=== PATIENT | male | born 1995 | race Caucasian/White ===

== ENCOUNTER 2017-01-23 13:29 | Emergency (ER) | payer SELFPAY ==
[~2017-01-23] VITALS: Ht 180.3 cm; Wt 103.4 kg
[~2017-01-23 13:29] MED LIST: DICY20TA57 PO; SRTR100T PO
--- OUTSIDE RECORDS SUMMARY | 2017-01-23 13:53 | XMS REPORT ---
Author Author NAYELI HORTON Organization [employer] Address Unknown Phone Unavailable Care Team Providers Care Die Designer Name Role Phone NAYELI HORTON CP Unavailable Allergies, Adverse Reactions, Alerts Substance Reaction Event Type N.K.D.A. Info Not Available Non Drug Allergy Problems Problem Type Condition Code Onset Dates Condition Status Assessment Anxiety F41.9 Active Assessment Acute non-recurrent maxillary sinusitis J01.00 Active Problem Anxiety F41.9 Active Assessment Chest discomfort R07.89 Active Medications Medication Code System Code Instructions Start Date End Date Status Dosage Sertraline HCl [facility] [address]-22 100 MG Orally Once a day Mar 11, 2016 1/2 tablet daily 3 weeks then 1 tablet daily Azithromycin [facility] [address]-25 250 MG Orally Once a day Mar 11, 2016 Mar 16, 2016 2 tablets on the first day, then 1 tablet daily for 4 days Procedures Procedure Coding System Code Date Office Visit, Est Pt., Level 4 CPT-4 50529 Mar 11, 2016 ELECTROCARDIOGRAM, TRACING CPT-4 31465 Mar 11, 2016 Vital Signs Date/Time: Mar 11, 2016 Cardiac Monitoring Heart Rate 72 bpm Weight 245.5 lbs Height 70 in BMI 35.22 Index Blood Pressure Diastolic 90 mmHg Blood Pressure Systolic 140 mmHg Results Name Result Date Reference Range Unit Abnormality Flag EKG, TRACING (IN-HOUSE) Summary Purpose [employer] Submission
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
[2017-01-23 15:34] VITALS: BP 125/88
== END 2017-01-23 15:34 | disposition home or self-care (01) ==
LOC: EDUNIT# 13:29 → ER 13:34
DX: S06.0X0A Concussion without loss of consciousness, initial encounter (principal); S01.511A Laceration without foreign body of lip, initial encounter; S00.83XA Contusion of other part of head, initial encounter; F41.9 Anxiety disorder, unspecified; F32.9 Major depressive disorder, single episode, unspecified; Y04.8XXA Assault by other bodily force, initial encounter
CPT/HCPCS: 99282

== ENCOUNTER 2020-04-14 11:21 | Inpatient (IN) | payer SELFPAY ==
[~2020-04-14] VITALS: Ht 177 cm; Wt 116.5 kg
[2020-04-14] MEDS ORDERED: IBUPROFEN 800 MG (MOTRIN) TAB PO ONE (11:45)
[2020-04-14] MEDS ORDERED: ONDANSETRON 4 MG/2 ML (SDV) Z0FRAN ONE (12:04)
--- NOTE | 2020-04-14 12:04 | ED General ---
General Stated Complaint: COVID POSITIVE - COUGH / SOA / FEVER Source of Information: Patient Exam Limitations: No Limitations History of Present Illness Date Seen by Provider: Apr 14, 2020 Time Seen by Provider: 12:04 Initial Comments To ER with shortness of breath. He states that he is Covid positive and tested positive on Thursday, April 06. He became symptomatic on April 03. He checked his oxygen saturation at home today and found it to be around 86% and he was 89% upon arrival here. This increased nicely to 99% on 2 L of supplemental oxygen. He also complains of some nausea and general malaise. Fevers persist. Timing/Duration: Getting Worse Severity: Moderate Associated Systoms: Cough, Shortness of Air Allergies and Home Medications Allergies Coded Allergies: No Known Drug Allergies (Unverified , 02/08/13) Home Medications Dicyclomine Hcl 20 Mg Tablet, 1 EACH PO QID PRN Prescribed by: KARL CONWAY on 02/08/13 0110 Sertraline Hcl 100 Mg Tablet, 1.5 TAB PO DAILY, (Reported) Patient Home Medication List Home Medication List Reviewed: Yes Review of Systems Review of Systems Constitutional: see HPI, chills, fever, malaise, weakness EENTM: see HPI Respiratory: see HPI, cough, dyspnea on exertion, short of breath Cardiovascular: no symptoms reported Genitourinary: no symptoms reported Musculoskeletal: no symptoms reported Skin: no symptoms reported Psychiatric/Neurological: No Symptoms Reported Hematologic/Lymphatic: No Symptoms Reported Immunological/Allergic: no symptoms reported Past Etfxxaz-Gvrbii-Pcqxnn Hx Patient Social History 2nd Hand Smoke Exposure: No Recent Hopitalizations: No Seasonal Allergies Seasonal Allergies: No Past Medical History Surgeries: No Respiratory: Yes ("CRAPPY AIRWAY" ) Cardiac: No Neurological: No Reproductive Disorders: No Sexually Transmitted Disease: No HIV/AIDS: No Genitourinary: No Gastrointestinal: No Musculoskeletal: No Endocrine: No HEENT: No Cancer: No Psychosocial: Yes Anxiety, Depression Integumentary: No Blood Disorders: No Family Medical History No Pertinent Family Hx Physical Exam Vital Signs Vital Signs - First Documented 04/14/20 12:00 Temp 38.2 Pulse 112 Resp 30 B/P (MAP) 124/79 (94) Pulse Ox 89 O2 Delivery Room Air O2 Flow Rate 2.00 Capillary Refill : Height, Weight, BMI Height: 5'11" Weight: 228lbs. oz. 103.817973qg; 31.80 BMI Method:Stated General Appearance: No Apparent Distress, Obese, Other (Does appear ill but in no distress) Eyes: Bilateral Eye Normal Inspection, Bilateral Eye PERRL Neck: Full Range of Motion, Normal Inspection Respiratory: Normal Breath Sounds, No Accessory Muscle Use, No Respiratory Distress Cardiovascular: Normal Peripheral Pulses, Tachycardia (Narrow complex regular sinus rhythm rate of about 110) Gastrointestinal: Normal Bowel Sounds, Non Tender, Soft Extremity: Normal Capillary Refill, Normal Inspection Neurologic/Psychiatric: Alert, Oriented x3 Skin: Normal Color, Warm/Dry Progress/Results/Core Measures Suspected Sepsis SIRS Temperature: Pulse: Respiratory Rate: Laboratory Tests 04/14/20 12:10: White Blood Count 5.2 Blood Pressure / Mean: Laboratory Tests 04/14/20 12:10: Creatinine 0.88, Platelet Count 252, Total Bilirubin 0.6 Results/Orders Lab Results Laboratory Tests Test 04/14/20 12:10 Range/Units White Blood Count 5.2 4.3-11.0 10^3/uL Red Blood Count 4.92 4.30-5.52 10^6/uL Hemoglobin 14.1 13.3-17.7 g/dL Hematocrit 44 40-54 % Mean Corpuscular Volume 89 80-99 fL Mean Corpuscular Hemoglobin 29 25-34 pg Mean Corpuscular Hemoglobin Concent 32 32-36 g/dL Red Cell Distribution Width 13.4 10.0-14.5 % Platelet Count 252 130-400 10^3/uL Mean Platelet Volume 8.7 L 9.0-12.2 fL Immature Granulocyte % (Auto) 1 % Neutrophils (%) (Auto) 64 42-75 % Lymphocytes (%) (Auto) 29 12-44 % Monocytes (%) (Auto) 6 0-12 % Eosinophils (%) (Auto) 0 0-10 % Basophils (%) (Auto) 0 0-10 % Neutrophils # (Auto) 3.4 1.8-7.8 10^3/uL Lymphocytes # (Auto) 1.5 1.0-4.0 10^3/uL Monocytes # (Auto) 0.3 0.0-1.0 10^3/uL Eosinophils # (Auto) 0.0 0.0-0.3 10^3/uL Basophils # (Auto) 0.0 0.0-0.1 10^3/uL Immature Granulocyte # (Auto) 0.0 0.0-0.1 10^3/uL D-Dimer 0.60 H 0.00-0.49 UG/ML Sodium Level 139 135-145 MMOL/L Potassium Level 3.4 L 3.6-5.0 MMOL/L Chloride Level 100 98-107 MMOL/L Carbon Dioxide Level 24 21-32 MMOL/L Anion Gap 15 H 5-14 MMOL/L Blood Urea Nitrogen 8 7-18 MG/DL Creatinine 0.88 0.60-1.30 MG/DL Estimat Glomerular Filtration Rate > 60 BUN/Creatinine Ratio 9 Glucose Level 94 70-105 MG/DL Calcium Level 7.0 L 8.5-10.1 MG/DL Corrected Calcium 7.0 L 8.5-10.1 MG/DL Total Bilirubin 0.6 0.1-1.0 MG/DL Aspartate Amino Transf (AST/SGOT) 90 H 5-34 U/L Alanine Aminotransferase (ALT/SGPT) 185 H 0-55 U/L Alkaline Phosphatase 48 40-136 U/L C-Reactive Protein High Sensitivity 2.20 H 0.00-0.50 MG/DL Total Protein 7.3 6.4-8.2 GM/DL Albumin 4.0 3.2-4.5 GM/DL Procalcitonin 0.05 <0.10 NG/ML My Orders Orders - SARAH HOWELL CONTROLLED ATMOSPHERIC FURNACE BRAZER Cbc With Automated Diff (04/14/20 11:38) Comprehensive Metabolic Panel (04/14/20 11:38) Procalcitonin (Pct) (04/14/20 11:38) Hs C Reactive Protein (04/14/20 11:38) Fibrin Degradation Products (04/14/20 11:38) Chest 1 View, Ap/Pa Only (04/14/20 11:38) Ed Iv/Invasive Line Start (04/14/20 11:38) Ibuprofen Tablet (Motrin Tablet) (04/14/20 11:45) Ondansetron Injection (Zofran Injectio (04/14/20 12:15) Ondansetron Injection (Zofran Injectio (04/14/20 12:04) Ct Angio Chest W (04/14/20 12:51) Iohexol Injection (Omnipaque 350 Mg/Ml 1 (04/14/20 13:15) Received Contrast (Hold Metformin- Contr (04/14/20 13:15) Ns (Ivpb) (Sodium Chloride 0.9% Ivpb Bag (04/14/20 13:15) Medications Given in ED Current Medications Medications Dose Ordered Sig/Palomo Route Start Time Stop Time Status Last Admin Dose Admin Ibuprofen 800 mg ONCE ONCE PO 04/14/20 11:45 04/14/20 11:46 DC 04/14/20 12:15 800 MG Ondansetron HCl 8 mg ONCE ONCE IVP 04/14/20 12:15 04/14/20 12:16 DC 04/14/20 12:15 8 MG Vital Signs/I&O 04/14/20 12:00 Temp 38.2 Pulse 112 Resp 30 B/P (MAP) 124/79 (94) Pulse Ox 89 O2 Delivery Room Air O2 Flow Rate 2.00 Capillary Refill : Departure Communication (Admissions) I discussed with him the need for admission to the hospital given his hypoxia as well as use of convalescent plasma and remdesivir your both of which experimental in nature with risk of allergic reaction. Discussed with him he would need to sign a consent to receive these treatments and he agrees. Impression Primary Impression: COVID-19 Additional Impression: Hypoxia Disposition: ADMITTED INPATIENT Condition: Stable Admissions Decision to Admit Reason: Admit from ER (General) Decision to Admit/Date: Apr 14, 2020 Time/Decision to Admit Time: 12:18 Departure-Patient Inst. Referrals: NO,LOCAL PHYSICIAN (PCP/Family) Primary Care Physician SARAH HOWELL APRN Apr 14, 2020 12:04
[2020-04-14] MEDS ORDERED: ONDANSETRON 4 MG/2 ML (SDV) Z0FRAN IVP ONE (12:15)
[2020-04-14 12:20] LABS: BASOPHILS % (AUTO) 0 % (0-10); EOSINOPHILS % (AUTO) 0 % (0-10); HEMATOCRIT 44 % (40-54); HEMOGLOBIN 14.1 g/dL (13.3-17.7); LYMPHOCYTES # (AUTO) 1.5 10^3/uL (1.0-4.0); LYMPHOCYTES % (AUTO) 29 % (12-44); MEAN CORPUSCULAR HEMOGLOBIN 29 pg (25-34); MEAN CORPUSCULAR HGB CONC 32 g/dL (32-36); MEAN CORPUSCULAR VOLUME 89 fL (80-99); MEAN PLATELET VOLUME 8.7 fL (9.0-12.2); MONOCYTES # (AUTO) 0.3 10^3/uL (0.0-1.0); MONOCYTES % (AUTO) 6 % (0-12); NEUTROPHILS # (AUTO) 3.4 10^3/uL (1.8-7.8); NEUTROPHILS % (AUTO) 64 % (42-75); PLATELET COUNT 252 10^3/uL (130-400); WHITE BLOOD COUNT 5.2 10^3/uL (4.3-11.0)
[2020-04-14 12:30] LABS: CHLORIDE 100 MMOL/L (98-107); POTASSIUM 3.4 MMOL/L (3.6-5.0); SODIUM 139 MMOL/L (135-145)
[2020-04-14 12:32] LABS: GLUCOSE 94 MG/DL (70-105); TOTAL PROTEIN 7.3 GM/DL (6.4-8.2)
[2020-04-14 12:33] LABS: CARBON DIOXIDE 24 MMOL/L (21-32)
[2020-04-14 12:34] LABS: BILIRUBIN,TOTAL 0.6 MG/DL (0.1-1.0)
[2020-04-14 12:35] LABS: ALKALINE PHOSPHATASE 48 U/L (40-136)
[2020-04-14 12:36] LABS: CREATININE SERUM 0.88 MG/DL (0.60-1.30); GFR ESTIMATED > 60
[2020-04-14 12:37] LABS: BUN/CREATININE RATIO 9
[2020-04-14 12:39] LABS: ALANINE AMINOTRANSFERASE 185 U/L (0-55)
--- NOTE | 2020-04-14 13:13 | Diagnostic Imaging Report ---
Portable erect AP chest at 1243h. INDICATION: Shortness of breath positive for COVID. There are no prior studies available for comparison. This exam is less than optimal as this exam is taken in shallow inspiration. Allowing for this technical factor the heart size is within normal limits. There are vague patchy areas of increased density in the left perihilar region and left lung base and perhaps in the right lower lobe. These findings are suspicious for mild pneumonia/atelectasis and may be related to the patient's diagnosis of COVID 19. A follow-up chest exam would be recommended for further study. The mediastinum is not widened. The osseous structures are intact. IMPRESSION: The findings do suggest mild bilateral pneumonia/atelectasis with greater involvement on the left. Recommendations as above. Report was faxed to [facility] by mulu at 1:12pm. Dictated by: Dictated on workstation # [id number]
[2020-04-14] MEDS ORDERED: IOHEXOL 350 MG/ML 100 ML (OMNIPAQUE 350) VIAL IV ONE (13:15)
[2020-04-14] MEDS ORDERED: HOLD METFORMIN - RECEIVED CONTRAST 20 ML VIAL IV SCH (13:15)
[2020-04-14] MEDS ORDERED: NS 100 ML (IVPB) BAG IV ONE (13:15)
--- NOTE | 2020-04-14 13:35 | NUR ---
Patient asks if RN will call his mother Phuong and let her know he will be hospitalized. Phuong called and informed that patient will be admitted. She verbalized understanding that she will not be able to come visit.
--- NOTE | 2020-04-14 14:15 | Diagnostic Imaging Report ---
PROCEDURE: CT angiography of the chest with contrast. TECHNIQUE: Multiple contiguous axial images were obtained through the chest after uneventful bolus administration of intravenous contrast. 3D reconstructed CTA MIP acquisitions were also performed. Auto Exposure Controls were utilized during the CT exam to meet ALARA standards for radiation dose reduction. INDICATION: Shortness of breath, positive COVID There are no prior CTA chest examinations available for comparison. The plain film examination of the chest performed prior this study at 1242 did suggest involvement of both lungs by mild pneumonia/atelectasis, particularly left lung. There is no defect within the pulmonary arteries to indicate a pulmonary embolus. The aorta is not abnormally dilated and there is no sign of a dissection. The heart size is within normal limits. As suggested on the plain film exam there are diffuse patchy areas of pneumonia/atelectasis throughout both lungs. This is particularly true of the lung bases. There is no significant pleural effusion identified. There is no mediastinal or hilar adenopathy. There are a few borderline enlarged hilar nodes bilaterally. The thyroid gland was not visualized in its entirety. There is no obvious chest wall mass. The sections of the upper abdomen failed to show any sign of an acute abnormality . The liver is prominent and the low density appearance liver does suggest fatty metamorphosis. There is also splenomegaly. The appearance of the liver and spleen is similar to the prior CT abdomen exam of 12/01/2012. The bone windows are unremarkable for a fracture or for a destructive lesion. IMPRESSION: 1. There is no evidence for a pulmonary embolus or for a dissection. 2. There are diffuse alveolar/interstitial infiltrates throughout both lungs. Most likely these are secondary to pneumonia/atelectasis related to the patient's diagnosis of COVID 19. Report was faxed to [facility] by mulu at 2:13p.m. Dictated by: Dictated on workstation # [id number]
--- NOTE | 2020-04-14 14:36 | NUR ---
Patient awake and alert, resting in bed. He is on oxygen at 2 LPM via Nasal cannula. He denies any needs at this time. Pt informed he will be going to room 433 but they are cleaning the room currently.
--- NOTE | 2020-04-14 14:50 | NUR ---
Report called to Abigail [facility] on 4th floor.
[2020-04-14 16:10] VITALS: BP 109/63
[2020-04-14 16:28] VITALS: BP 109/63
[2020-04-14] MEDS ORDERED: ONDANSETRON 4 MG/2 ML (SDV) Z0FRAN IV PRN (16:30)
[2020-04-14 16:56] VITALS: BP 124/79
[2020-04-14] MEDS ORDERED: REMDESIVIR INJ 200 MG in NS (IVPB) 210 ML IV ONE ×2 (17:00→20:00)
[2020-04-14] MEDS ORDERED: ONDANSETRON 4 MG/2 ML (SDV) Z0FRAN IV SCH (18:00)
[2020-04-14] MEDS ORDERED: IBUPROFEN 800 MG (MOTRIN) TAB PO PRN (18:00)
[2020-04-14] MEDS: ENOXAPARIN 40 MG/0.4 ML (LOVENOX) SYR SC SCH (18:05)
--- NOTE | 2020-04-14 18:08 | History & Physical-Hospitalist ---
History of Present Illness HPI/Chief Complaint 24 yo male with dx Covid 1 week ago thursday. Sx's started 2 days before. Now with increased SOA, cough. Has been increasingly SOA with staying in bed more . C/O cough. Source: patient Exam Limitations: no limitations Date Seen 04/14/20 Time Seen by a Provider: 16:00 Attending Physician Samantha Pruitt MD PCP No,Local Physician Referring Physician Date of Admission Apr 14, 2020 at 12:50 Home Medications & Allergies Home Medications Reviewed patient Home Medication Reconciliation performed by pharmacy medication reconciliations laundry technician and/or nursing. Patients Allergies have been reviewed. Allergies Allergies Coded Allergies No Known Drug Allergies (Twdkempdmz40/1/13) Past Ldorldz-Pnufuv-Qvlvxj Hx Past Med/Social Hx: Reviewed Nursing Past Med/Soc Hx Patient Social History Marrital Status: single Employed/Student: unemployed Alcohol Use: Denies Use Recreational Drug Use: No Smoking Status: Never a Smoker 2nd Hand Smoke Exposure: No Recent Foreign Travel: No Contact w/other who traveled: No Recent Hopitalizations: No Recent Infectious Disease Expo: Yes (covid19) Immunizations Up To Date Pediatric: No Seasonal Allergies Seasonal Allergies: No Past Medical History Cardiac: High Cholesterol Reproductive: No Sexually Transmitted Disease: No HIV/AIDS: No Psychosocial: Anxiety, Depression History of Blood Disorders: No Family History No Pertinent Family Hx Review of Systems Constitutional: see HPI, fever, malaise, weakness EENTM: no symptoms reported Respiratory: cough Cardiovascular: no symptoms reported Gastrointestinal: no symptoms reported Genitourinary: no symptoms reported Musculoskeletal: no symptoms reported Skin: no symptoms reported Psychiatric/Neurological: Anxiety Physical Exam Physical Exam Vital Signs Vital Signs - First Documented 04/14/20 04/14/20 12:00 16:56 Temp 38.2 Pulse 112 Resp 30 B/P (MAP) 124/79 (94) Pulse Ox 89 O2 Delivery Room Air O2 Flow Rate 2.00 FiO2 28 Capillary Refill : Less Than 3 Seconds Height, Weight, BMI Height: 5'11" Weight: 228lbs. oz. 103.070138no; 37.21 BMI Method:Stated General Appearance: Obese, Other (appears ill) HEENT: Normal ENT Inspection Neck: Normal Inspection, Other (short thick) Respiratory: Crackles, Decreased Breath Sounds, Other (cough with inspiration) Cardiovascular: Regular Rate, Rhythm, No Gallop, No Murmur Gastrointestinal: Normal Bowel Sounds, Non Tender, Soft Extremity: No Pedal Edema Neurologic/Psychiatric: Depressed Affect Skin: Normal Color, Warm/Dry Results Results/Procedures Labs Laboratory Tests 04/14/20 12:10 Patient resulted labs reviewed. Imaging: Reviewed Imaging Report Assessment/Plan Admission Diagnosis Covid 19 viral pneumonia with hypoxia anxiet obesity Pt is at high risk for increasing respiratory failure because of sedentary lifestyle and body habitus. will begin decadron, Remdisivir and convelescent plasma with the informed consent of patient ( given to me) Prognosis guarded. Admission Status: Inpatient Order (span 2 midnights) Reason for Inpatient Admission: Poor prognosis with Covid 19 Clinical Quality Measures DVT/VTE Risk/Contraindication: Risk Factor Score Per Nursin RFS Level Per Nursing on Admit: 2=Moderate SAMANTHA PRUITT MD Apr 14, 2020 18:08
[2020-04-14 19:51] VITALS: BP 120/70
[2020-04-14] MEDS: RT-ALBUTEROL INHALER HFA (VENTOLIN HFA) 18 GM IH SCH (20:59)
[2020-04-14 23:47] VITALS: BP 103/64
[2020-04-15] MEDS: RT-ALBUTEROL INHALER HFA (VENTOLIN HFA) 18 GM IH SCH ×4 (02:23→19:00)
[2020-04-15 03:53] VITALS: BP 115/56
[2020-04-15 07:12] VITALS: BP 117/63
[2020-04-15 08:22] LABS: BASOPHILS % (AUTO) 0 % (0-10); EOSINOPHILS % (AUTO) 0 % (0-10); HEMATOCRIT 41 % (40-54); HEMOGLOBIN 13.1 g/dL (13.3-17.7); LYMPHOCYTES # (AUTO) 0.7 10^3/uL (1.0-4.0); LYMPHOCYTES % (AUTO) 28 % (12-44); MEAN CORPUSCULAR HEMOGLOBIN 29 pg (25-34); MEAN CORPUSCULAR HGB CONC 32 g/dL (32-36); MEAN CORPUSCULAR VOLUME 88 fL (80-99); MONOCYTES # (AUTO) 0.2 10^3/uL (0.0-1.0); MONOCYTES % (AUTO) 7 % (0-12); NEUTROPHILS # (AUTO) 1.6 10^3/uL (1.8-7.8); NEUTROPHILS % (AUTO) 65 % (42-75); PLATELET COUNT 303 10^3/uL (130-400); WHITE BLOOD COUNT 2.5 10^3/uL (4.3-11.0)
[2020-04-15 08:42] LABS: ALANINE AMINOTRANSFERASE 153 U/L (0-55); ALBUMIN 3.7 GM/DL (3.2-4.5); ALKALINE PHOSPHATASE 40 U/L (40-136); BILIRUBIN,TOTAL 0.5 MG/DL (0.1-1.0); BUN/CREATININE RATIO 12; CALCIUM 7.1 MG/DL (8.5-10.1); CARBON DIOXIDE 23 MMOL/L (21-32); CHLORIDE 104 MMOL/L (98-107); CREATININE SERUM 0.69 MG/DL (0.60-1.30); GFR ESTIMATED > 60; GLUCOSE 100 MG/DL (70-105); POTASSIUM 4.1 MMOL/L (3.6-5.0); SODIUM 141 MMOL/L (135-145); TOTAL PROTEIN 6.2 GM/DL (6.4-8.2)
[2020-04-15 11:02] VITALS: BP 142/94
--- NOTE | 2020-04-15 12:51 | Progress Note - Hospitalist ---
Subjective HPI/CC On Admission Date Seen by Provider: Apr 15, 2020 Time Seen by Provider: 11:00 24 yo male with dx Covid 1 week ago thursday. Sx's started 2 days before. Now with increased SOA, cough. Has been increasingly SOA with staying in bed more . C/O cough. Subjective/Events-last exam Patient is tearful this morning. He feels that he has wasted his life with his anxiety and being a hermit. Feels short of breath and has a lot of trouble with coughing and taking some deep breaths Review of Systems Pulmonary: Dyspnea, Cough Objective Exam Vital Signs Vital Signs Date Time Temp Pulse Resp B/P (MAP) Pulse Ox O2 Delivery O2 Flow Rate FiO2 04/15/20 11:02 36.3 100 18 142/94 (110) 93 Nasal Cannula 2.00 04/14/20 16:56 28 Capillary Refill : Less Than 3 SecondsLess Than 3 Seconds General Appearance: Anxious, Obese Neck: Supple Respiratory: Crackles, Decreased Breath Sounds Cardiovascular: Regular Rate, Rhythm, No Edema, No Gallop, No JVD, No Murmur, Normal Peripheral Pulses Gastrointestinal: Normal Bowel Sounds, Non Tender, Soft Extremity: Normal Capillary Refill, No Pedal Edema Results/Procedures Lab Laboratory Tests 04/15/20 07:52 Patient resulted labs reviewed. Imaging: Reviewed Imaging Report Assessment/Plan Assessment and Plan Assess & Plan/Chief Complaint COVID-19 viral pneumonia with acute respiratory failure currently stable on 2 L nasal cannula Connick anxiety and depression I believe he told me he was on Cymbalta we will need to address this for continuation Obesity Clinical Quality Measures DVT/VTE Risk/Contraindication: Risk Factor Score Per Nursin RFS Level Per Nursing on Admit: 2=Moderate GORDON PRUITT MD Apr 15, 2020 12:51
[2020-04-15] MEDS ORDERED: ALPRAZolam 0.25 MG (XANAX) TAB PO PRN (13:00)
[2020-04-15 15:42] VITALS: BP 113/66
[2020-04-15] MEDS ORDERED: REMDESIVIR INJ 100 MG in NS (IVPB) 230 ML IV SCH ×2 (17:00→20:00)
[2020-04-15] MEDS: ENOXAPARIN 40 MG/0.4 ML (LOVENOX) SYR SC SCH (18:28)
[2020-04-15] MEDS ORDERED: LOPERAMIDE 2 MG (IMODIUM) TABLET PO PRN ×2 (19:00→20:00)
[2020-04-15 19:41] VITALS: BP 119/60
[2020-04-15] MEDS ORDERED: LOPERAMIDE 2 MG (IMODIUM) TABLET ONE (20:06)
[2020-04-15 23:27] VITALS: BP 112/59
[2020-04-16] MEDS: RT-ALBUTEROL INHALER HFA (VENTOLIN HFA) 18 GM IH SCH ×3 (02:15→14:33)
[2020-04-16 04:28] VITALS: BP 112/57
[2020-04-16 07:43] LABS: ALBUMIN 3.6 GM/DL (3.2-4.5); CHLORIDE 106 MMOL/L (98-107); POTASSIUM 3.9 MMOL/L (3.6-5.0); SODIUM 142 MMOL/L (135-145)
[2020-04-16 07:46] LABS: GLUCOSE 113 MG/DL (70-105); TOTAL PROTEIN 6.1 GM/DL (6.4-8.2)
[2020-04-16 07:47] LABS: CARBON DIOXIDE 26 MMOL/L (21-32)
[2020-04-16 07:48] LABS: BILIRUBIN,TOTAL 0.4 MG/DL (0.1-1.0)
[2020-04-16 07:49] LABS: ALKALINE PHOSPHATASE 40 U/L (40-136); GFR ESTIMATED > 60
[2020-04-16 07:50] LABS: BUN/CREATININE RATIO 14
[2020-04-16 07:52] LABS: ALANINE AMINOTRANSFERASE 190 U/L (0-55)
[2020-04-16 08:18] VITALS: BP 120/56
[2020-04-16 11:02] VITALS: BP 135/60
[2020-04-16] MEDS ORDERED: DULO30CA3 PO (13:49)
--- NOTE | 2020-04-16 13:50 | NUR ---
I SPOKE WITH THE PATIENT ON THE ROOM PHONE AND CALLED [facility] TO COMPLETE THIS MED REC. PATIENT GETS VANITA FROM THE PALS PROGRAM AT [facility] LAST FILLED 02/07/20 CYMBALTA 30MG #270/90DS
--- NOTE | 2020-04-16 14:11 | Progress Note ---
Subjective Subjective/Events-last exam Afebrile, feeling significantly better, but hasn't been out of bed much yet today. Currently maintaining appropriate saturation on room air. Objective Exam Last Set of Vital Signs Vital Signs Date Time Temp Pulse Resp B/P (MAP) Pulse Ox O2 Delivery O2 Flow Rate FiO2 04/16/20 11:02 36.0 72 20 135/60 (85) 94 Room Air 04/16/20 09:51 1.00 04/14/20 16:56 28 Capillary Refill : Less Than 3 SecondsLess Than 3 Seconds I&O Intake and Output 04/16/20 00:00 Intake Total 2220 ml Balance 2220 ml Intake Oral 2220 ml # Voids 9 # Bowel Movements 5 General: Alert, No Acute Distress Lungs: Clear to Auscultation Heart: Regular Rate, No Murmurs Neuro: Normal Speech Psych/Mental Status: Mental Status NL Results/Procedures Lab Laboratory Tests 04/16/20 06:50: Sodium Level 142, Potassium Level 3.9, Chloride Level 106, Carbon Dioxide Level 26, Anion Gap 10, Blood Urea Nitrogen 10, Creatinine 0.70, Estimat Glomerular Filtration Rate > 60, BUN/Creatinine Ratio 14, Glucose Level 113H, Calcium Level 7.0L, Corrected Calcium 7.3L, Total Bilirubin 0.4, Aspartate Amino Transf (AST/SGOT) 107H, Alanine Aminotransferase (ALT/SGPT) 190H, Alkaline Phosphatase 40, Total Protein 6.1L, Albumin 3.6 Assessment/Plan Assessment/Plan (1) COVID-19 Status: Acute Assessment & Plan: Day 3 of dexamethasone and remdesevir. Still waiting for convalescent plasma. Is on room air today, will ambulate and if tolerated may d/c later today. (2) Hypoxia Status: Acute Assessment & Plan: Secondary to COVID 19 infection. (3) Elevated liver enzymes Status: Acute Assessment & Plan: Suspect secondary to COVID, not high enough to require holding remdesevir, monitor. (4) Depression Status: Chronic Assessment & Plan: Resume home Cymbalta (5) DVT prophylaxis Status: Acute Assessment & Plan: Enoxaparin Clinical Quality Measures DVT/VTE Risk/Contraindication: Risk Factor Score Per Nursin RFS Level Per Nursing on Admit: 2=Moderate SISSY BAILEY MD Apr 16, 2020 14:11
[2020-04-16 15:35] VITALS: BP 128/59
[2020-04-16] MEDS ORDERED: DEXA6TAB PO (15:52)
--- NOTE | 2020-04-16 15:57 | Discharge Summary ---
Discharge Summary Hospital Course Problems/Diagnosis: (1) COVID-19 Status: Acute Assessment & Plan: Received 3 days of dexamethasone and remdesevir, discharged with 2 additional days of PO dexamethasone. Convalescent plasma ordered but not available before he was ready for discharge. (2) Hypoxia Status: Acute Assessment & Plan: Secondary to COVID 19 infection, initially requiring supplemental oxygen. On day of d/c, weaned to room air, ambulated in room and showered without difficulty and SpO2 remained 95% on room air even with activity. (3) Elevated liver enzymes Status: Acute Assessment & Plan: Suspect secondary to COVID, not high enough to require holding remdesevir, monitor. (4) Depression Status: Chronic Assessment & Plan: Resume home Cymbalta Hospital Course Date of Admission: Apr 14, 2020 at 12:50 Admission Diagnosis : COVID19 pneumonia Hypoxia Depression Obesity Family Physician/Provider: Ladi,Local Physician Date of Discharge: 04/16/20 Discharge Diagnosis: See problem list Hospital Course: See problem list Labs and Pending Lab Test: Laboratory Tests 04/16/20 06:50: Sodium Level 142, Potassium Level 3.9, Chloride Level 106, Carbon Dioxide Level 26, Anion Gap 10, Blood Urea Nitrogen 10, Creatinine 0.70, Estimat Glomerular Filtration Rate > 60, BUN/Creatinine Ratio 14, Glucose Level 113H, Calcium Level 7.0L, Corrected Calcium 7.3L, Total Bilirubin 0.4, Aspartate Amino Transf (AST/SGOT) 107H, Alanine Aminotransferase (ALT/SGPT) 190H, Alkaline Phosphatase 40, Total Protein 6.1L, Albumin 3.6 Home Meds Active Dexamethasone 6 Mg Tablet 6 Mg PO DAILY Reported Cymbalta (Duloxetine HCl) 30 Mg Capsule.dr 90 Mg PO DAILY TAKES 3 (30MG) TABLETS Assessment/Pt DC Instructions Follow up with Bud Richter on 04/20 at 2:20 pm. You should remain in isolation until released by the health department. Discharge Diet: Regular Diet Activity as Tolerated: Yes Discharge Physical Examination Allergies: Coded Allergies: No Known Drug Allergies (Unverified , 02/08/13) General Appearance: No Apparent Distress Respiratory: Lungs Clear, Normal Breath Sounds Cardiovascular: Regular Rate, Rhythm, No Murmur Skin: Normal Color, Warm/Dry Neurologic/Psychiatric: Alert, No Motor/Sensory Deficits Copy Copies To 1: Bud Rober, [employer] Clinical Quality Measures DVT/VTE Risk/Contraindication: Risk Factor Score Per Nursin RFS Level Per Nursing on Admit: 2=Moderate SISSY BAILEY MD Apr 16, 2020 15:57
[2020-04-17] MEDS ORDERED: DULoxetine 30 MG (CYMBALTA) CAP PO SCH (09:00)
== END 2020-04-16 17:15 | disposition home or self-care (01) | DRG 177 ==
LOC: EDUNIT# 11:21 → ER 11:22 → 4TH 12:50
PROVIDERS: ADMIT Internal Medicine; ATTEND Family Medicine
PROC: XW033E5 Introduction of Remdesivir Anti-infective into Peripheral Vein, Percutaneous Approach, New Technology Group 5 (ICD-10-PCS; principal; 2020-04-14)
DX: U07.1 COVID-19 (principal); J96.01 Acute respiratory failure with hypoxia; J12.89 Other viral pneumonia; Z73.0 Burn-out; F41.9 Anxiety disorder, unspecified; F32.9 Major depressive disorder, single episode, unspecified; E66.9 Obesity, unspecified; Z68.37 Body mass index [BMI] 37.0-37.9, adult
CPT/HCPCS: 36415; 71045; 71275; 80053; 84145; 85025; 85379; 86141; 86900; 86901; 94640; 94760

== ENCOUNTER 2021-01-06 18:34 | Emergency (ER) | payer OTHER ==
[~2021-01-06] VITALS: Ht 177 cm; Wt 93.0 kg
[~2021-01-06 18:34] MED LIST changes: +DEXA6TAB PO; +DULO30CA3 PO; +ONDA4TAB11 PO; +RT-ALBUINH IH
--- NOTE | 2021-01-06 19:09 | ED GI ---
General Chief Complaint: Abdominal/GI Problems Stated Complaint: ABD PAIN Nursing Triage Note: ARRIVED VIA AMB TO ROOM 05. COMPLAINS OF MID UPPERGASTRIC ABD PAIN. PT HAS BEEN SEEN FOR THIS AND PRESCRIBED PROTONIX AND CARAFATE. PT STATES HE ALSO HAD A NEG ULTRASOUND. (VEL ROSALES) History of Present Illness Date Seen by Provider: Jan 06, 2021 Time Seen by Provider: 18:55 Initial Comments 25-year-old male presents for epigastric and right upper quadrant pain that has been present intermittently for the last month. He has been followed at [facility] and had a negative ultrasound, negative H. pylori and was started on Carafate and Protonix. He reports doing well until today. He had a burger and [place]oth[place] fries for lunch and since then had increased pain in his abdomen. He reports his pain at an 8/10 prior to arrival. But he currently reports it to be a 4/10 he does believe the symptoms are subsiding. He has had no nausea, diarrhea or vomiting. He reports drinking approximately half a gallon of water daily. He denies any added stress or anxiety in his life. Timing/Duration: 1-3 Hours Severity/Quality: Mild Location: RUQ, Epigastric Radiation: No Radiation Associated Symptoms: Heartburn; No Nausea/Vomiting (VEL ROSALES) Allergies and Home Medications Allergies Coded Allergies: No Known Drug Allergies (Unverified , 02/08/13) Home Medications Albuterol Sulfate 1 Puff Puff, 2 PUFF IH Q4H 1 PUFF = 90 MCG Prescribed by: ROXANNE GERMAIN on 04/11/201828 Dexamethasone 6 Mg Tablet, 6 MG PO DAILY Prescribed by: SISSY BAILEY on 04/16/20 155 Duloxetine HCl 30 Mg Capsule.dr, 90 MG PO DAILY, (Reported) TAKES 3 (30MG) TABLETS Ondansetron 4 Mg Tab.rapdis, 4 MG PO Q8H PRN for nausea Prescribed by: ROXANNE GERMAIN on 04/11/201828 Patient Home Medication List Home Medication List Reviewed: Yes (VEL ROSALES) Review of Systems Review of Systems Constitutional: no symptoms reported, chills Gastrointestinal: See HPI, Abdominal Pain; Denies Constipated, Denies Diarrhea, Denies Difficulty Swallowing, Denies Nausea, Denies Poor Appetite, Denies Poor Fluid Intake, Denies Vomiting (VEL ROSALES) All Other Systems Reviewed Negative Unless Noted: Yes (CONNIEVEL ESTRADA) Past Uksdhqc-Ghcbgn-Kjjcln Hx Patient Social History Substance use?: No Alcohol Use?: Yes Alcohol Frequency: Once in a while (CONNIEVEL ESTRADA) Immunizations Up To Date Tetanus Booster (TDap): Unknown PED Vaccines UTD: No Second COVID19 Vaccination Per: 07/29 PHIZER (VEL ROSALES) Seasonal Allergies Seasonal Allergies: No (VEL ROSALES) Past Medical History Surgeries: No Respiratory: Yes ("CRAPPY AIRWAY" ) Cardiac: Yes High Cholesterol Neurological: No Reproductive Disorders: No Sexually Transmitted Disease: No HIV/AIDS: No Genitourinary: No Gastrointestinal: No Musculoskeletal: No Endocrine: No HEENT: No Cancer: No Psychosocial: Yes Anxiety, Depression Integumentary: No Blood Disorders: No (VEL ROSALES) Family Medical History Reviewed Nursing Family Hx (VEL ROSALES) No Pertinent Family Hx (VEL ROSALES) Physical Exam Vital Signs Vital Signs - First Documented 01/06/21 18:46 Temp 36.3 Pulse 89 Resp 16 B/P (MAP) 129/80 (96) Pulse Ox 94 O2 Delivery Room Air (GORDON VU MD) Vital Signs Capillary Refill : Less Than 3 Seconds (CONNIEVEL ESTRADA) Height/Weight/BMI Height: 5'11" Weight: 228lbs. oz. 103.254058ad; 29.00 BMI Method:Stated General Appearance: WD/WN, no apparent distress Respiratory: chest non-tender, lungs clear, normal breath sounds, no respiratory distress Cardiovascular: normal peripheral pulses, regular rate, rhythm Gastrointestinal: normal bowel sounds, soft; No distended, No rebound; tenderness (Trace tenderness epigastric region and right upper quadrant. Negative rebound and negative Mclain sign.); No mass Back: normal inspection, no CVA tenderness Neurologic/Psychiatric: no motor/sensory deficits, alert, normal mood/affect, o riented x 3 (VEL ROSALES) Progress/Results/Core Measures Results/Orders Lab Results Laboratory Tests Test 01/06/21 19:22 Range/Units White Blood Count 10.7 4.3-11.0 10^3/uL Red Blood Count 5.06 4.30-5.52 10^6/uL Hemoglobin 14.6 13.3-17.7 g/dL Hematocrit 44 40-54 % Mean Corpuscular Volume 86 80-99 fL Mean Corpuscular Hemoglobin 29 25-34 pg Mean Corpuscular Hemoglobin Concent 33 32-36 g/dL Red Cell Distribution Width 13.5 10.0-14.5 % Platelet Count 306 130-400 10^3/uL Mean Platelet Volume 8.5 L 9.0-12.2 fL Immature Granulocyte % (Auto) 0 % Neutrophils (%) (Auto) 50 42-75 % Lymphocytes (%) (Auto) 21 12-44 % Monocytes (%) (Auto) 6 0-12 % Eosinophils (%) (Auto) 21 H 0-10 % Basophils (%) (Auto) 1 0-10 % Neutrophils # (Auto) 5.4 1.8-7.8 10^3/uL Lymphocytes # (Auto) 2.2 1.0-4.0 10^3/uL Monocytes # (Auto) 0.7 0.0-1.0 10^3/uL Eosinophils # (Auto) 2.3 H 0.0-0.3 10^3/uL Basophils # (Auto) 0.1 0.0-0.1 10^3/uL Immature Granulocyte # (Auto) 0.0 0.0-0.1 10^3/uL Neutrophils % (Manual) 58 % Lymphocytes % (Manual) 21 % Monocytes % (Manual) 6 % Eosinophils % (Manual) 15 % Blood Morphology Comment NORMAL Sodium Level 138 135-145 MMOL/L Potassium Level 3.8 3.6-5.0 MMOL/L Chloride Level 105 98-107 MMOL/L Carbon Dioxide Level 23 21-32 MMOL/L Anion Gap 10 5-14 MMOL/L Blood Urea Nitrogen 14 7-18 MG/DL Creatinine 0.80 0.60-1.30 MG/DL Estimat Glomerular Filtration Rate 116 BUN/Creatinine Ratio 18 Glucose Level 106 H 70-105 MG/DL Calcium Level 9.5 8.5-10.1 MG/DL Corrected Calcium 9.3 8.5-10.1 MG/DL Total Bilirubin 0.3 0.1-1.0 MG/DL Aspartate Amino Transf (AST/SGOT) 10 5-34 U/L Alanine Aminotransferase (ALT/SGPT) 17 0-55 U/L Alkaline Phosphatase 62 40-136 U/L Total Protein 7.0 6.4-8.2 GM/DL Albumin 4.2 3.2-4.5 GM/DL (GORDON VU MD) Medications Given in ED Current Medications Medications Dose Ordered Sig/Palomo Route Start Time Stop Time Status Last Admin Dose Admin Al Hydrox/Mg Hydrox/Simethicone 30 ml ONCE ONCE PO 01/06/21 19:15 01/06/21 19:16 DC 01/06/21 19:11 30 ML Hyoscyamine Sulfate 0.125 mg ONCE ONCE SL 01/06/21 20:30 01/06/21 20:31 DC 01/06/21 20:28 0.125 MG Lidocaine HCl 15 ml ONCE ONCE PO 01/06/21 19:15 01/06/21 19:16 DC 01/06/21 19:11 15 ML (GORDON VU MD) Vital Signs/I&O 01/06/21 01/06/21 18:46 20:47 Temp 36.3 36.3 Pulse 89 89 Resp 16 16 B/P (MAP) 129/80 (96) 120/78 (96) Pulse Ox 94 97 O2 Delivery Room Air Room Air (GORDON VU MD) Blood Pressure Mean: 96 Progress Progress Note : Time: 18:55 Progress Note Patient seen and evaluated, will obtain labs. Will give GI cocktail and reevaluate. 1944 patient had minimal improvement with the GI cocktail, will try Reglan and Levsin. 2029 patient reports improvement in his symptoms. Discharge instructions and return precautions reviewed with him. (VEL ROSALES) Departure Impression Primary Impression: Epigastric pain Disposition: HOME, SELF-CARE Condition: Improved Departure-Patient Inst. Decision time for Depature: 19:30 (VEL ROSALES) Referrals: [facility] [place],LOCAL PHYSICIAN (PCP) Primary Care Physician Patient Instructions: Dyspepsia (DC) Add. Discharge Instructions: Continue home medications as prescribed. Avoid spicy, fried or grilled foods. Use Mylanta or Maalox for acute abdominal pain. Follow-up with [facility] if symptoms are not improving or worsen. Return to the emergency department for new, urgent healthcare needs. All discharge instructions reviewed with patient and/or family. Voiced understanding. ATTENDING PHYSICIAN NOTE: I was physically present as attending physician in the emergency department during the care of this patient, but I was not directly involved in the decision making or delivery of care for this patient. (GORDON VU MD) CONNIEVEL Jan 06, 2021 19:09 GORDON VU MD Jan 07, 2021 04:24
[2021-01-06] MEDS ORDERED: LIDOCAINE 2% VISCOUS 15 ML UDC PO ONE (19:15)
[2021-01-06] MEDS ORDERED: ANTACID SUSP 30 ML UDC (MYLANTA) PO ONE (19:15)
[2021-01-06 19:30] LABS: BASOPHILS # (AUTO) 0.1 10^3/uL (0.0-0.1); BASOPHILS % (AUTO) 1 % (0-10); EOSINOPHILS # (AUTO) 2.3 10^3/uL (0.0-0.3); EOSINOPHILS % (AUTO) 21 % (0-10); HEMATOCRIT 44 % (40-54); HEMOGLOBIN 14.6 g/dL (13.3-17.7); LYMPHOCYTES # (AUTO) 2.2 10^3/uL (1.0-4.0); LYMPHOCYTES % (AUTO) 21 % (12-44); MEAN CORPUSCULAR HEMOGLOBIN 29 pg (25-34); MEAN CORPUSCULAR HGB CONC 33 g/dL (32-36); MEAN CORPUSCULAR VOLUME 86 fL (80-99); MEAN PLATELET VOLUME 8.5 fL (9.0-12.2); MONOCYTES # (AUTO) 0.7 10^3/uL (0.0-1.0); MONOCYTES % (AUTO) 6 % (0-12); NEUTROPHILS # (AUTO) 5.4 10^3/uL (1.8-7.8); NEUTROPHILS % (AUTO) 50 % (42-75); PLATELET COUNT 306 10^3/uL (130-400); WHITE BLOOD COUNT 10.7 10^3/uL (4.3-11.0)
[2021-01-06 19:45] LABS: ALBUMIN 4.2 GM/DL (3.2-4.5); BILIRUBIN,TOTAL 0.3 MG/DL (0.1-1.0); CALCIUM 9.5 MG/DL (8.5-10.1); CREATININE SERUM 0.8 MG/DL (0.60-1.30); POTASSIUM 3.8 MMOL/L (3.6-5.0)
[2021-01-06 19:53] LABS: EOSINOPHILS % (MANUAL) 15 %; LYMPHOCYTES % (MANUAL) 21 %; MONOCYTES % (MANUAL) 6 %; NEUTROPHILS % (MANUAL) 58 %; RBC MORPH NORMAL
[2021-01-06] MEDS ORDERED: METOCLOPRAMIDE 10MG/10ML ORAL SOL(REGLAN) UDC PO STA (20:18)
[2021-01-06] MEDS ORDERED: HYOSCYAMINE 0.125 MG (LEVSIN) TAB SL ONE (20:30)
[2021-01-06 20:47] VITALS: BP 120/78
== END 2021-01-06 20:48 | disposition home or self-care (01) ==
LOC: EDUNIT# 18:34 → ER 18:37
DX: R10.13 Epigastric pain (principal); F41.9 Anxiety disorder, unspecified; F32.9 Major depressive disorder, single episode, unspecified; Z79.899 Other long term (current) drug therapy
CPT/HCPCS: 36415; 80053; 85007; 85027; 99283